=== PATIENT | female | born 1940 | race Caucasian/White ===

== ENCOUNTER 2020-07-24 09:42 | Outpatient (CLI) | payer MEDICARE, BC, SELFPAY ==
--- NOTE | 2020-07-24 09:50 | MM_ITS ---
WS: [id number] BILATERAL SCREENING DIGITAL MAMMOGRAM WITH CAD HISTORY: SCREENING COMPARISON: 11/13/2017, 11/12/2017 and 10/17/2016 Bilateral CC and MLO views submitted. Computer aided detection analyzed. Breast composition: There are scattered areas of fibroglandular density. No suspicious masses, microc alcifications or architectural distortion. Benign calcifications in each breast. MM/[id number] IMPRESSION: BI-RADS: 2-Benign FOLLOW UP: 1 Year Follow-up
== END 2020-07-24 09:43 | disposition home or self-care (01) ==
LOC: RADSHAW 09:45
PROVIDERS: PCP Family Medicine; Visit Provider Family Medicine
DX: Z12.31 Encounter for screening mammogram for malignant neoplasm of breast (principal)
CPT/HCPCS: 77067

== ENCOUNTER → 2021-06-21 12:47 | Outpatient (BNVA) | payer MEDICARE, BC, SELFPAY | PROVIDERS: PCP Family Medicine; Visit Provider Family Medicine | DX: I10 Essential (primary) hypertension (principal); E78.5 Hyperlipidemia, unspecified; Z00.00 Encounter for general adult medical examination without abnormal findings; M19.90 Unspecified osteoarthritis, unspecified site | CPT/HCPCS: 80053; 80061 ==

== ENCOUNTER 2021-08-07 09:17 | Outpatient (CLI) | payer MEDICARE, BC, SELFPAY ==
--- NOTE | 2021-08-07 09:29 | MM_ITS ---
WS: [id number] BILATERAL SCREENING DIGITAL BREAST TOMOSYNTHESIS MAMMOGRAM WITH CAD HISTORY: SCREENING COMPARISON: 07/24/2020, 11/12/2017 Bilateral CC and MLO views with tomosynthesis and synthetic mammography submitted. Computer aided det ection analyzed. Breast composition: There are scattered areas of fibroglandular density. No suspicious masses, microc alcifications or architectural distortion. Benign calcifications. Asymmetries described on prior mamm ograms have resolved or become less apparent. MM/[place] [id number] IMPRESSION: BI-RADS: 2-Benign FOLLOW UP: 1 Year Follow-up
== END 2021-08-07 09:18 | disposition home or self-care (01) ==
LOC: RAD 09:20
PROVIDERS: PCP Family Medicine; Visit Provider Family Medicine
DX: Z12.31 Encounter for screening mammogram for malignant neoplasm of breast (principal)
CPT/HCPCS: 77063; 77067

== ENCOUNTER 2022-06-12 07:16 | Outpatient (CLI) | payer MEDICARE, BC, SELFPAY ==
--- NOTE | 2022-06-12 07:41 | MR_ITS ---
WS: [id number] EXAMINATION: MR shoulder RT wo con* [id number] ORDER DATE: 06/12/2022 8:09 AM COMPARISON: None. HISTORY: POST INJURY/?ROTATOR CUFF TEAR/PAIN IN R SHOULDER CONTRAST: None. TECHNIQUE: Axial T2 STAR, coronal proton density fat sat, sagittal T2 fat sat, sagittal proton densit y fat sat, axial proton density fat sat, coronal T2 fat sat, and coronal T1 performed. After contrast , axial T1 fat sat, coronal T1 fat sat, and sagittal T1 fat sat were performed. FINDINGS: Some images degraded by patient motion. 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 Moderate delmi unt of subacromial subdeltoid fluid. Moderate joint effusion. High-grade insertional tear of the dist al supraspinatus. Chronic atrophy of the distal supraspinatus. No significant tendon retraction. Unde rsurface tear distal infraspinatus measuring 7 mm. Normal teres minor. Subcoracoid effusion. Atrophy of the subscapularis muscle belly. Diffuse thinning of the subscapularis tendon. Slight medial subluxation of the biceps tendon from the bicipital groov e proximally. Tendinopathy or partial intrasubstance tear intra-articular biceps tendon. 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 Degenerative fray ing of the glenoid labrum. No visualized acute fractures. MR/MR shoulder RT wo con* [id number] IMPRESSION: Some images degraded by patient motion. 1. Small high-grade insertional tear distal supraspinatus. No tendon retractio n. Chronic atrophy of the supraspinatus. 2. Small undersurface tear distal infraspinatus measuring 7 mm. 3. Marked thinning of the subscapularis tendon with atrophy of the subscapular is muscle belly . 4. Slight medial subluxation of the biceps tendon from the bicipital groove. 5. Intra-articular biceps tendon appears intact with partial tear or tendinopa thy.
== END 2022-06-12 07:17 | disposition home or self-care (01) ==
LOC: RAD 07:20
PROVIDERS: PCP Family Medicine; Visit Provider Family Medicine
DX: M75.101 Unspecified rotator cuff tear or rupture of right shoulder, not specified as traumatic (principal)
CPT/HCPCS: 73221

== ENCOUNTER → 2022-07-24 11:09 | Outpatient (BNVA) | payer MEDICARE, BC, SELFPAY | PROVIDERS: PCP Family Medicine; Referring Provider Family Medicine; Visit Provider Specialist | DX: M75.111 Incomplete rotator cuff tear or rupture of right shoulder, not specified as traumatic (principal); S49.91XA Unspecified injury of right shoulder and upper arm, initial encounter; W20.8XXA Other cause of strike by thrown, projected or falling object, initial encounter | CPT/HCPCS: 73030; 99204 ==

== ENCOUNTER 2022-08-15 07:58 | Outpatient (RCR) | payer MEDICARE, BC, SELFPAY | END 2022-09-09 23:59 | disposition home or self-care (01) | LOC: SPT 07:58 | PROVIDERS: Visit Provider Specialist | DX: M25.511 Pain in right shoulder (principal) | CPT/HCPCS: 97110; 97161 ==

== ENCOUNTER 2022-09-10 06:00 | Outpatient (RCR) | payer MEDICARE, BC, SELFPAY | END 2022-10-10 23:59 | disposition home or self-care (01) | LOC: SPT 06:00 | PROVIDERS: Visit Provider Specialist | DX: M25.511 Pain in right shoulder (principal) | CPT/HCPCS: 97110 ==

== ENCOUNTER 2022-10-11 06:00 | Outpatient (RCR) | payer MEDICARE, BC, SELFPAY | END 2022-11-09 23:59 | disposition home or self-care (01) | LOC: SPT 06:00 | PROVIDERS: Visit Provider Specialist | DX: M25.511 Pain in right shoulder (principal) | CPT/HCPCS: 97110 ==

== ENCOUNTER → 2023-10-30 09:10 | Outpatient (BNVA) | payer MEDICARE, BC, SELFPAY | PROVIDERS: PCP Family Medicine; Visit Provider Family Medicine | DX: Z00.00 Encounter for general adult medical examination without abnormal findings (principal); Z13.220 Encounter for screening for lipoid disorders; Z13.6 Encounter for screening for cardiovascular disorders | CPT/HCPCS: 80053; 80061 ==

== ENCOUNTER → 2024-07-15 14:43 | Outpatient (BNVA) | payer MEDICARE, BC, SELFPAY | PROVIDERS: PCP Family Medicine; Visit Provider Family Medicine | DX: R07.9 Chest pain, unspecified (principal) | CPT/HCPCS: 80053; 80061; 84484; 85025 ==

== ENCOUNTER → 2024-08-27 09:35 | Outpatient (BNVA) | payer MEDICARE, BC, SELFPAY | PROVIDERS: Absent Provider Family Medicine; PCP Family Medicine; Visit Provider Family Medicine | DX: D64.9 Anemia, unspecified (principal) | CPT/HCPCS: 82728; 83540; 85025 ==

== ENCOUNTER 2024-09-09 10:19 | Oncology outpatient (recurring) (ONCR) | payer MEDICARE, SELFPAY ==
[2024-09-09 12:07] LABS: Iron 50 ug/dL (37-145); Thyroid Stimulating Hormone 1.52 uIU/mL (0.27-4.20); Total Iron Binding Capacity 244 mcg/dl; Unsaturated Iron Binding 194 ug/dL (112-347); Vitamin B12 816 pg/mL (232-1245)
[2024-09-10 08:55] LABS: PROTEIN, TOTAL 7.1 g/dL (6.1-8.1)
[2024-09-13 20:19] LABS: ALPHA 1 GLOBULIN 0.3 g/dL (0.2-0.3); ALPHA 2 GLOBULIN 0.7 g/dL (0.5-0.9); BETA 1 GLOBULIN 0.4 g/dL (0.4-0.6); BETA 2 GLOBULIN 0.3 g/dL (0.2-0.5)
== END 2024-09-09 23:59 | disposition home or self-care (01) ==
PROVIDERS: PCP Family Medicine; Visit Provider Internal Medicine
DX: D64.9 Anemia, unspecified (principal); R53.83 Other fatigue; D75.839 Thrombocytosis, unspecified; D50.9 Iron deficiency anemia, unspecified; F32.A Depression, unspecified
CPT/HCPCS: 36415; 82607; 82746; 83010; 83540; 83550; 83615; 84155; 84165; 84238; 84443; 85045; 86880; 99205

== ENCOUNTER 2024-10-07 13:29 | Oncology outpatient (recurring) (ONCR) | payer MEDICARE, SELFPAY ==
[2024-10-07 14:15] LABS: Hematocrit 33.8 % (36-47); Hemoglobin 10.20 g/dL (11.27-16.99); Mean Corpuscular HGB Conc 30.2 g/dL (30-55); Mean Corpuscular Hemoglobin 24.4 pg (27-33); Mean Corpuscular Volume 80.9 fl (85-98); Nucleated Red Blood Cells % 0 %; Platelet Count 526 10^3/cmm (157-399); Red Blood Count 4.18 10^6/uL (3.85-5.65); White Blood Count 5.75 10^3/uL (3.29-11.43)
== END 2024-10-10 23:59 | disposition home or self-care (01) ==
PROVIDERS: Internal Medicine; PCP Family Medicine; Visit Provider Internal Medicine
DX: D75.839 Thrombocytosis, unspecified (principal); D64.9 Anemia, unspecified; E61.1 Iron deficiency; Z79.899 Other long term (current) drug therapy; Z87.891 Personal history of nicotine dependence
CPT/HCPCS: 36415; 85025; 99213

== ENCOUNTER 2025-01-25 12:27 | Oncology outpatient (recurring) (ONCR) | payer MEDICARE, BC, SELFPAY ==
[2025-01-25 13:17] LABS: Hematocrit 36.1 % (36-47); Hemoglobin 11.00 g/dL (11.27-16.99); Mean Corpuscular HGB Conc 30.5 g/dL (30-55); Mean Corpuscular Hemoglobin 24.8 pg (27-33); Mean Corpuscular Volume 81.3 fl (85-98); Nucleated Red Blood Cells % 0 %; Platelet Count 586 10^3/cmm (157-399); Red Blood Count 4.44 10^6/uL (3.85-5.65); White Blood Count 6.38 10^3/uL (3.29-11.43)
[2025-01-25 13:41] LABS: Alanine Aminotransferase 11 U/L (0-33); Albumin Level 4.3 g/dL (3.5-5.2); Alkaline Phosphatase 76 U/L (35-105); Anion Gap 15.4 (5-19); Aspartate Amino Transferase 20 U/L (0-32); Blood Urea Nitrogen 18 mg/dL (8-23); Calcium 9.5 mg/dL (8.5-10.5); Carbon Dioxide 26 mmol/L (22-29); Chloride 105 mmol/L (98-107); Ferritin 134 ng/mL (15-150); Globulin 2.9 g/dL (1.3-4.6); Glucose 89 mg/dL (65-115); Iron 69 ug/dL (37-145); Osmolality Calculated 295 mOsm/kg (285-295); Potassium 4.4 mmol/L (3.5-5.1); Sodium 142 mmol/L (136-145); Total Iron Binding Capacity 251 mcg/dl; Total Protein 7.2 g/dL (6.6-8.7); Unsaturated Iron Binding 182 ug/dL (112-347)
== END 2025-02-09 23:59 | disposition home or self-care (01) ==
PROVIDERS: Internal Medicine; PCP Family Medicine; Visit Provider Nurse Practitioner Family
DX: D75.839 Thrombocytosis, unspecified (principal); D64.9 Anemia, unspecified; R03.0 Elevated blood-pressure reading, without diagnosis of hypertension; Z79.899 Other long term (current) drug therapy; Z87.891 Personal history of nicotine dependence
CPT/HCPCS: 36415; 80053; 82728; 83010; 83540; 83550; 83615; 84238; 85025; 85045; 99214